=== PATIENT | female | born 1940 | race African-American/Black ===

== ENCOUNTER 2018-08-11 22:13 | Inpatient (IN) | payer MEDICARE, BC ==
[~2018-08-11] VITALS: Ht 152.4 cm; Wt 68.9 kg
[~2018-08-11 22:13] MED LIST: ACULAR PF0.5% OP; ALLOPURINOL100 MG PO; ARANESP0.15 MG/0. IJ; ASPIRIN 81M81 MG/TA2 PO; ATARAX 25MG25 MG/TAB PO; B-121000 MCG PO; BENICAR40 MG PO; COLACE 100100 MG/CAP PO; COREG CR80 MG PO; DEMADEX 20MG20 MG PO; DEXILANT PO; HYDROCODONE/APAP PO; HYDROXYZINE HCL25 MG PO; LIDODERM5% TP; MIRALAX17 GM/DOSE PO; MULTIPLE VITAMI1 CAP PO; MYLICON40 MG/0.6 PO; NORVASC 5MG5 MG/TAB PO; OMEGA 31000 MG PO; OMEPRAZOLE20 MG PO; PLENDIL5 MG PO; POLY IRON PN1 TAB PO; REFRESH EYE ITCH5 ML OP; RESTORA PO; ZEMPLAR2 MCG PO; [UNRECOGNIZED DRUG - OTHER] PO
[2018-08-11] MEDS ORDERED: DAZIDOX10 MG PO (22:49)
[2018-08-11] MEDS ORDERED: KEPPRA 500MG500 MG PO (22:51)
[2018-08-11] MEDS ORDERED: VITAMIN C500 MG PO (22:53)
[2018-08-11] MEDS ORDERED: SANTYL30 TOP (22:54)
[2018-08-11] MEDS ORDERED: SENOKOT S 50 MG1 TAB PO (22:55)
[2018-08-11] MEDS ORDERED: ZINC SO4 PO (22:56)
[2018-08-11] MEDS ORDERED: NORVASC 10MG10 MG PO (22:57)
[2018-08-11] MEDS ORDERED: VENTOLIN0.09 MG INH (22:58)
[2018-08-11] MEDS ORDERED: COREG CR80 MG PO (22:58)
[2018-08-11] MEDS ORDERED: VITAMIN D 1001000 IU PO (22:59)
[2018-08-11] MEDS ORDERED: ARANESP0.04 MG/ML SQ (23:00)
[2018-08-11] MEDS ORDERED: APRESOLINE 25MG25 MG PO (23:32)
[2018-08-11] MEDS ORDERED: SYNTHROID0.1 MG/TAB PO (23:33)
[2018-08-11] MEDS ORDERED: DEMADEX 20MG20 M1 PO (23:34)
[2018-08-11] MEDS ORDERED: PRILOSEC 20MG20 MG PO (23:34)
[2018-08-11] MEDS ORDERED: FENTANYL 12MCG TD (23:35)
[2018-08-11] MEDS ORDERED: NEURONTIN100 MG/CAP PO (23:36)
[2018-08-12 00:06] LABS: BASO % 0.3 % (0.0-2.0); EOS % 0.3 % (0-4.0); GRAN # 4.9 (1.4-6.5); GRAN % 74.7 % (42.2-75.2); HEMATOCRIT 26.9 % (37.0-47.0); HEMOGLOBIN 8.2 g/dl (12.5-16.0); LYMPH # 0.9 (1.2-3.4); LYMPH % 14.4 % (20.0-51.0); MEAN CELL VOLUME 83 fl (80.0-100.0); MEAN CORPUSCULAR HEMOGLOBIN 25 pg (27.0-31.0); MEAN CORPUSCULAR HGB CONC 31 g/dl (33.0-37.0); MEAN PLATELET VOLUME 8.7 fl (7.4-10.4); MONO # 0.6 (0.1-0.6); MONO % 9.2 % (1.7-9.3); PLATELET COUNT 351 K/mm3 (130-400); RED BLOOD COUNT 3.23 M/mm3 (4.10-5.30); REDCELL DISTRIBUTION WIDTH-CV 20.5 % (11.5-14.5)
[2018-08-12 00:19] LABS: ALANINE AMINOTRANSFERASE < 6 U/L (9-52); ALBUMIN 2.9 gm/dL (3.5-5.0); ALKALINE PHOSPHATASE 106 U/L (50-136); ANION GAP 9 mmol/L (7-16); AST,SGOT 30 U/L (15-37); BILIRUBIN,TOTAL 0.3 mg/dL (0.0-1.0); BLOOD UREA NITROGEN 56 mg/dL (7-17); CALCIUM 8.2 mg/dL (8.4-10.2); CARBON DIOXIDE 20 mmol/L (22-30); CHLORIDE 104 mmol/L (98-107); CREATININE, serum 2.71 (0.52-1.25); GLUCOSE 119 mg/dL (74-106); POTASSIUM 5.7 mmol/L (3.4-5.0); SODIUM 133 mmol/L (137-145); TOTAL PROTEIN 6.9 gm/dL (6.4-8.2)
[2018-08-12 00:26] LABS: COLLECTION METHOD CATHETER
[2018-08-12 00:41] LABS: PH 5 (5-8); SQUAMOUS EPITHELIAL None Seen /hpf; URINE APPEARANCE Clear; URINE BACTERIA None Seen /hpf; URINE BILIRUBIN Negative (NEGATIVE); URINE BLOOD Negative (NEGATIVE); URINE COLOR Yellow; URINE GLUCOSE Negative (NEGATIVE); URINE KETONE Negative (NEGATIVE); URINE LEUKOCYTE ESTERASE Negative (NEGATIVE); URINE NITRATE Negative (NEGATIVE); URINE PROTEIN(semi-quant) 1+ (NEGATIVE); URINE RBC 0-2 /hpf; URINE UROBILINOGEN Negative (NEGATIVE)
[2018-08-12 00:44] LABS: ERYTHROCYTE SEDIMENTATION RATE 63 mm/hr (0-30)
[2018-08-12 00:47] LABS: C-REACTIVE PROTEIN 5.6 mg/dL (0.0-0.9)
--- NOTE | 2018-08-12 05:30 | NUR ---
pt arrived to unit A+OX4, but drowsy. at bedside. assessment complete. left heel sore, covered with dressing. discoloration in bilateral legs. pt moans with movement. report given to BESSIE Dennison. no needs at this time.
[2018-08-12 05:38] VITALS: BP 111/53; PULSE 60; TEMP 97.9
[2018-08-12 06:35] LABS: CALCIUM 8.7 mg/dL (8.4-10.2); CREATININE, serum 2.89 (0.52-1.25); POTASSIUM 5.3 mmol/L (3.4-5.0)
[2018-08-12 07:02] LABS: TSH w REFLEX 3.79 uIU/mL (0.465-4.680)
--- NOTE | 2018-08-12 07:30 | NUR ---
Report received from BESSIE Pina. pT in bed sleeping, respirations at 10/minute, able to arouse easily and 02 saturations at 94%, will continue to monitor.
[2018-08-12 07:44] VITALS: BP 153/56; PULSE 67; TEMP 97.8
[2018-08-12 08:20] LABS: CALCIUM 8.5 mg/dL (8.4-10.2); CREATININE, serum 2.79 (0.52-1.25)
[2018-08-12 09:48] LABS: RETIC # 0.07 M/mm3 (0.02-0.16); RETIC % 2.3 % (0.5-3.52)
[2018-08-12 09:55] LABS: IRON,SERUM 36 ug/dL (35-150)
[2018-08-12 10:04] LABS: TOTAL IRON BINDING CAPACITY 214 ug/dL (265-497)
[2018-08-12 10:11] LABS: URINE PROTEIN:CREAT RATIO 1.03 (0.00-0.14)
[2018-08-12 10:30] LABS: FERRITIN 80 ng/mL (11-264)
--- NOTE | 2018-08-12 10:33 | NUR ---
SW attended clinical rounds to discuss discharge planning. Before this hospitalization, patient was at [facility] for jail, pt and ot. Patient reports she plans to return there upon discharge. SW presented choice form and patients signed. Patient's PCP is Dr Joshi in [facility] and she obtains prescriptions from [facility] on [address]. Patient uses a walker or cane for ambulation but no other DME is reported. Patient report before she went to SNF, she received home health services with [facility]. FANTASMA will fax updates on patient to [facility].
--- NOTE | 2018-08-12 11:14 | NUR ---
Assessment charted. PT has pain at 6/10, PRN meds provided by RN. Marlena heel wound, covered with mepilex and heel floated. Pt has srinivas that are intact in skull. IVF to LF. Alert and oriented, will continue to monitor.
[2018-08-12 12:34] LABS: CALCIUM 7.9 mg/dL (8.4-10.2); CREATININE, serum 2.66 (0.52-1.25); POTASSIUM 4.6 mmol/L (3.4-5.0)
[2018-08-12 12:42] VITALS: BP 144/57; PULSE 66; TEMP 97.4
--- NOTE | 2018-08-12 13:54 | NUR ---
speech therapy in to work with patient
--- NOTE | 2018-08-12 14:27 | NUR ---
to radiology per WC for modified barrium swallow
--- NOTE | 2018-08-12 15:35 | NUR ---
returned to room per WC, assisted up to bedside commode and voided qs, then assisted into bed, denies needs
[2018-08-12 16:33] LABS: CREATININE, serum 2.73 (0.52-1.25); POTASSIUM 4.8 mmol/L (3.4-5.0)
[2018-08-12 16:36] VITALS: BP 153/65; PULSE 70; TEMP 97.5
[2018-08-12 20:32] VITALS: BP 125/53; PULSE 66; TEMP 98.5
[2018-08-12 23:38] VITALS: BP 147/50; PULSE 67; TEMP 98.1
[2018-08-12 23:39] LABS: FOLATE (FOLIC ACID) 13.6 ng/mL (7.0-31.4)
--- NOTE | 2018-08-13 01:38 | NUR ---
Patient resting in bed when this nurse assessed her. Swallows medications whole with thin liquids. Able to roll side to side and noted to use bed marie for toileting. Patient has fluids running to left forearm IV site. Remains free from redness, swelling, or drainage. Patient has been sleeping well throughout the night. Follows commands and is compliant with care.
[2018-08-13 03:45] VITALS: BP 131/56; PULSE 76; TEMP 97.8
[2018-08-13 06:19] LABS: BASO % 0.2 % (0.0-2.0); EOS % 0.2 % (0-4.0); GRAN # 2.9 (1.4-6.5); GRAN % 67.5 % (42.2-75.2); LYMPH # 0.9 (1.2-3.4); LYMPH % 21.7 % (20.0-51.0); MEAN CELL VOLUME 84 fl (80.0-100.0); MEAN CORPUSCULAR HGB CONC 31 g/dl (33.0-37.0); MEAN PLATELET VOLUME 8.8 fl (7.4-10.4); MONO # 0.4 (0.1-0.6); MONO % 9.7 % (1.7-9.3); PLATELET COUNT 313 K/mm3 (130-400); RED BLOOD COUNT 2.87 M/mm3 (4.10-5.30); REDCELL DISTRIBUTION WIDTH-CV 20.7 % (11.5-14.5)
[2018-08-13 06:25] LABS: HEMOGLOBIN 7.4 g/dl (12.5-16.0); MEAN CORPUSCULAR HEMOGLOBIN 26 pg (27.0-31.0)
[2018-08-13 06:33] LABS: ALBUMIN 2.1 gm/dL (3.5-5.0); CALCIUM 7.5 mg/dL (8.4-10.2); CREATININE, serum 2.62 (0.52-1.25); PHOSPHOROUS 4.7 mg/dL (2.5-4.5); POTASSIUM 4.3 mmol/L (3.4-5.0)
--- NOTE | 2018-08-13 06:46 | NUR ---
Patient slept well throughout the night. Complained of pain once to her bottom. Patient given pain medication and repositioned. Effective.
--- NOTE | 2018-08-13 07:26 | NUR ---
Report from mary ann LA.
[2018-08-13 07:55] VITALS: BP 152/71; PULSE 65; TEMP 97.7
--- NOTE | 2018-08-13 11:09 | NUR ---
SW attended clinical rounds to discuss discharge plan. Patient will possibly discharge tommorow back to [facility]. SW spoke with patient after rounds and patient is still wanting to return to [facility] for post acute rehab. SW also spoke with patient's daughter, Hiwot ([phone]), via phone about discharge plan.
[2018-08-13 11:45] VITALS: BP 135/56; PULSE 53; TEMP 97.8
--- NOTE | 2018-08-13 12:19 | NUR ---
PATIENT RESTING IN BED AT BEDSIDE.
[2018-08-13 15:49] VITALS: BP 140/65; PULSE 58; TEMP 98.2
--- NOTE | 2018-08-13 16:22 | NUR ---
REPORT TO SHAUN LA.
--- NOTE | 2018-08-13 18:52 | NUR ---
Patient in bed resting. Denies further needs at this time. Reported off to hotel night auditor.
[2018-08-13 19:15] VITALS: BP 122/57; PULSE 66; TEMP 98.5
--- NOTE | 2018-08-13 19:45 | NUR ---
Pt. sitting up in bed at this time. Pt. is A&OX3, assessment complete. INT to lt. forearm patent. Pt. denies pain or other needs at this time. Call light within reach.
[2018-08-13 23:14] VITALS: BP 129/44; PULSE 60; TEMP 98.3
[2018-08-14 04:56] VITALS: BP 119/48; PULSE 62; TEMP 98.4
[2018-08-14 06:52] LABS: BASO % 0.4 % (0.0-2.0); EOS % 0.4 % (0-4.0); GRAN # 2.9 (1.4-6.5); GRAN % 58.9 % (42.2-75.2); LYMPH # 1.5 (1.2-3.4); LYMPH % 29.2 % (20.0-51.0); MEAN CELL VOLUME 84 fl (80.0-100.0); MEAN CORPUSCULAR HGB CONC 31 g/dl (33.0-37.0); MEAN PLATELET VOLUME 9.3 fl (7.4-10.4); MONO # 0.5 (0.1-0.6); MONO % 10.1 % (1.7-9.3); PLATELET COUNT 358 K/mm3 (130-400); REDCELL DISTRIBUTION WIDTH-CV 20.8 % (11.5-14.5)
[2018-08-14 06:53] LABS: HEMATOCRIT 25.1 % (37.0-47.0); HEMOGLOBIN 7.8 g/dl (12.5-16.0); MEAN CORPUSCULAR HEMOGLOBIN 26 pg (27.0-31.0)
[2018-08-14 06:58] LABS: ALBUMIN 2.5 gm/dL (3.5-5.0); CALCIUM 7.7 mg/dL (8.4-10.2); CREATININE, serum 2.71 (0.52-1.25); POTASSIUM 4.7 mmol/L (3.4-5.0)
--- NOTE | 2018-08-14 07:00 | NUR ---
REPORT FROM SUE LA.
[2018-08-14 08:11] VITALS: BP 128/44; PULSE 60; TEMP 98
--- NOTE | 2018-08-14 09:20 | NUR ---
PT SITTING UP IN BED FINISHING BREAKFAST. AM MEDS GIVEN ORDERED. PT TURNED AND PERICARE COMPLETED. BARRIOR CREAM APPLIED PER PATIENT REQUEST. PT TURNED TO RIGHT AND SUPPORTED WITH PILLOW.
[2018-08-14 11:42] VITALS: BP 118/45; PULSE 59; TEMP 98.1
--- NOTE | 2018-08-14 14:27 | NUR ---
FANTASMA rec'd a call from patient's daughter, Navya ([phone]), about patient going to [facility] instead of [facility] for SNF. SW reported she can speak with patient and about this. SW met with patient and about SNF choices. Patient reported [facility] would be her first choice and [facility] is the second choice. Patient's signed choice form and SW faxed referral.
--- NOTE | 2018-08-14 14:33 | NUR ---
CALLED AND LEFT MESSAGE FOR DR. DE LOS SANTOS ON PLANS FOR PT TO TRANSFER.
--- NOTE | 2018-08-14 14:39 | NUR ---
CONTACTED OFFICE AND LEFT MESSAGE.
[2018-08-14 16:51] VITALS: BP 126/67; PULSE 58; TEMP 98.2
--- NOTE | 2018-08-14 18:59 | NUR ---
REPORT TO ISAURO LA.
[2018-08-14 20:00] VITALS: BP 122/70; PULSE 62; TEMP 98
--- NOTE | 2018-08-14 21:35 | NUR ---
Pt resting in bed, some C/O pain / discomfort, shift assessments complete, left Pt call light in reach, bed in lowest position.
[2018-08-15] VITALS: BP 123/49; PULSE 62; TEMP 98.1
[2018-08-15 04:00] VITALS: BP 145/50; PULSE 64; TEMP 98.6
[2018-08-15 06:54] LABS: BASO % 0.2 % (0.0-2.0); EOS % 0.2 % (0-4.0); GRAN # 2.3 (1.4-6.5); GRAN % 56.7 % (42.2-75.2); LYMPH # 1.2 (1.2-3.4); MEAN CELL VOLUME 83 fl (80.0-100.0); MEAN CORPUSCULAR HGB CONC 31 g/dl (33.0-37.0); MEAN PLATELET VOLUME 8.6 fl (7.4-10.4); MONO # 0.5 (0.1-0.6); MONO % 11.7 % (1.7-9.3); PLATELET COUNT 293 K/mm3 (130-400); RED BLOOD COUNT 2.96 M/mm3 (4.10-5.30); REDCELL DISTRIBUTION WIDTH-CV 20.7 % (11.5-14.5)
--- NOTE | 2018-08-15 06:56 | NUR ---
Report from Chinmay LA.
[2018-08-15 07:02] LABS: HEMATOCRIT 24.6 % (37.0-47.0); HEMOGLOBIN 7.5 g/dl (12.5-16.0); MEAN CORPUSCULAR HEMOGLOBIN 25 pg (27.0-31.0)
[2018-08-15 07:08] LABS: ALBUMIN 2.2 gm/dL (3.5-5.0); CALCIUM 7.5 mg/dL (8.4-10.2); CREATININE, serum 2.95 (0.52-1.25); PHOSPHOROUS 5.5 mg/dL (2.5-4.5); POTASSIUM 4.5 mmol/L (3.4-5.0)
[2018-08-15 08:01] VITALS: BP 148/46; PULSE 64; TEMP 97.8
--- NOTE | 2018-08-15 08:35 | NUR ---
PT SITTING UP IN BED EATING BREAKFAST. PT TOOK AM MEDS ORDERED. HEAD WOUND CDI WITH INTACT HECTOR. PAIN BEING WELL CONTROLLED WITH PO PAIN MEDS AT THIS TIME.
--- NOTE | 2018-08-15 08:55 | NUR ---
Initial visit; Patient thanked Scientific Informatics Analyst for looking in on her and offering Spiritual Care, though patient declined.
--- NOTE | 2018-08-15 11:13 | NUR ---
FANTASMA attended clinical rounds. Patient will discharge today to [facility] for care home, PT, and OT. SW presented IM to patient. She signed and was provided a copy. FANTASMA will fax orders once they're completed.
--- NOTE | 2018-08-15 11:25 | NUR ---
contacted [facility] and spoke with DR. Rodriguez's office and ok to remove srinivas today before discharge.
[2018-08-15 12:04] VITALS: BP 105/48; PULSE 57; TEMP 98.2
[2018-08-15] MEDS ORDERED: NEURONTIN400 MG/CAP PO (12:16)
[2018-08-15] MEDS ORDERED: FENTANYL 12MCG TD (12:17)
[2018-08-15] MEDS ORDERED: DAZIDOX10 MG PO (12:17)
[2018-08-15] MEDS ORDERED: MIRALAX PA17 GM/Dose PO (12:17)
--- NOTE | 2018-08-15 12:26 | NUR ---
[place] removed per doctors order. Every other staple was removed and sterti-strips applied in the place for a total of 14 srinivas removed. Incision cleansed with betadine. Pt. tolerated procedure well. Education provided on sterti-strips
--- NOTE | 2018-08-15 13:30 | NUR ---
report to Janina rodriguez.
== END 2018-08-15 13:31 | DRG 683 ==
LOC: COL.ER 22:13 → SURG 08-12 03:38
PROVIDERS: Emergency Medicine; Internal Medicine Nephrology; Nurse Practitioner Family; Physician Assistant; ADMIT Internal Medicine
DX: N17.9 Acute kidney failure, unspecified (principal); I13.0 Hypertensive heart and chronic kidney disease with heart failure and stage 1 through stage 4 chronic kidney disease, or unspecified chronic kidney disease; Z66 Do not resuscitate; E11.22 Type 2 diabetes mellitus with diabetic chronic kidney disease; N18.4 Chronic kidney disease, stage 4 (severe); M35.3 Polymyalgia rheumatica; S82.832D Other fracture of upper and lower end of left fibula, subsequent encounter for closed fracture with routine healing; I50.9 Heart failure, unspecified; D63.1 Anemia in chronic kidney disease; E87.5 Hyperkalemia; D47.2 Monoclonal gammopathy; M79.7 Fibromyalgia; Z98.84 Bariatric surgery status; Z87.891 Personal history of nicotine dependence; Z91.81 History of falling; E03.9 Hypothyroidism, unspecified; Z88.2 Allergy status to sulfonamides
CPT/HCPCS: 99223-AI; 99232-AI; 99239; J0610; J0881; J3010; J7030; L1846